=== PATIENT | male | born 1955 | race African-American/Black ===

== ENCOUNTER 2020-06-18 07:17 | Outpatient (CLI) | payer MEDICARE | END 2020-06-18 07:18 | disposition home or self-care (01) | LOC: CSHULT 07:17 | PROVIDERS: ATTEND Family Medicine | DX: Z13.6 Encounter for screening for cardiovascular disorders (principal); I11.0 Hypertensive heart disease with heart failure; I50.9 Heart failure, unspecified; Z79.899 Other long term (current) drug therapy; Z87.891 Personal history of nicotine dependence | CPT/HCPCS: 76706 ==